=== PATIENT | female | born 2000 | race Caucasian/White ===

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

== ENCOUNTER → 2022-03-08 | Outpatient (REF) ==
[~2022-03-08] MED LIST changes: +CEPH500C PO
[2022-03-08 14:18] LABS: RSV AMPLIFICATION NEGATIVE (NEGATIVE)
== END ==
LOC: M LABSMTC 11:34
PROVIDERS: ATTEND Family Medicine
DX: Z20.818 Contact with and (suspected) exposure to other bacterial communicable diseases (principal)

== ENCOUNTER 2022-06-21 18:07 | Emergency (ER) | payer OTHER, SELFPAY ==
[~2022-06-21] VITALS: Ht 175.3 cm; Wt 66.3 kg
[2022-06-21] MEDS ORDERED: METOCLOPRAMIDE 10MG TAB PO ONE (20:35)
[2022-06-21] MEDS ORDERED: NAPROXEN 250 MG TAB PO ONE (20:35)
[2022-06-21 21:06] VITALS: BP 124/82
[2022-06-21 21:44] LABS: BASO % 0.4 % (0.0-1.0); EOS # 0.1 10^3/uL (0.0-0.5); EOS % 1.9 % (0.0-3.0); HEMATOCRIT 41.5 % (36.0-47.0); HEMOGLOBIN 13.6 g/dl (12.0-15.5); LYMPH # 2.2 10^3/uL (1.5-5.0); LYMPH % 30.7 % (24.0-44.0); MEAN CORPUSCULAR HEMOGLOBIN 29.6 pg (27.0-33.0); MEAN CORPUSCULAR HGB CONC 32.8 g/dl (32.0-36.5); MEAN CORPUSCULAR VOLUME 90.2 fl (80.0-96.0); MONO # 0.6 10^3/uL (0.0-0.8); NEUTROPHILS # 4.2 10^3/uL (1.5-8.5); NEUTROPHILS % 58.7 % (36.0-66.0); PLATELET COUNT, AUTOMATED 250 10^3/uL (150-450); WHITE BLOOD COUNT 7.2 10^3/uL (4.0-10.0)
[2022-06-21 21:54] LABS: INR 0.97; PROTHROMBIN TIME 13.1 SECONDS (12.5-14.5)
[2022-06-21 21:55] LABS: PARTIAL THROMBOPLASTIN TIME 30.3 SECONDS (24.8-34.2)
[2022-06-21 22:22] LABS: FREE THYROXINE INDEX 3.1 % (1.3-4.8); T UPTAKE 37.8 % (22.5-37.0); THYROID STIMULATING HORMONE 0.989 uIU/ML (0.48-4.17); THYROXINE (T4) 8.1 UG/DL (5.5-11.1)
[2022-06-21] MEDS ORDERED: EQL0.65S NARES (22:45)
== END 2022-06-21 22:54 | disposition home or self-care (01) ==
LOC: M ED 18:07
DX: R51.9 Headache, unspecified (principal); R04.0 Epistaxis; Z79.1 Long term (current) use of non-steroidal anti-inflammatories (NSAID); Z79.899 Other long term (current) drug therapy

== ENCOUNTER → 2022-12-06 | Outpatient (CLI) | payer OTHER ==
[~2022-12-06] MED LIST changes: +EQL0.65S NARES
[2022-12-06 17:20] LABS: BASO % 0.6 % (0.0-1.0); EOS # 0.1 10^3/uL (0.0-0.5); EOS % 2.5 % (0.0-3.0); HEMATOCRIT 37.6 % (36.0-47.0); HEMOGLOBIN 12.4 g/dl (12.0-15.5); LYMPH # 1.7 10^3/uL (1.5-5.0); LYMPH % 32.6 % (24.0-44.0); MONO # 0.5 10^3/uL (0.0-0.8); MONO % 9.6 % (2.0-8.0); NEUTROPHILS # 2.8 10^3/uL (1.5-8.5); NEUTROPHILS % 54.1 % (36.0-66.0); PLATELET COUNT, AUTOMATED 253 10^3/uL (150-450); RED BLOOD COUNT 4.13 10^6/uL (4.00-5.40); WHITE BLOOD COUNT 5.1 10^3/uL (4.0-10.0)
[2022-12-06 17:34] LABS: FREE T4 0.97 NG/DL (0.83-1.43)
[2022-12-06 17:36] LABS: ALBUMIN 4.1 G/DL (3.2-5.2); ALKALINE PHOSPHATASE 72 U/L (46-116); ALT/SGPT 17 U/L (7.0-40); AST/SGOT 11 U/L (<34); BILIRUBIN,TOTAL 0.3 MG/DL (0.3-1.2); BLOOD UREA NITROGEN 6 MG/DL (9-23); CALCIUM LEVEL 8.8 MG/DL (8.5-10.1); CARBON DIOXIDE LEVEL 29 MMOL/L (20-31); CHLORIDE LEVEL 103 MMOL/L (98-107); CREATININE FOR GFR 0.65 MG/DL (0.55-1.30); GLUCOSE, FASTING 90 MG/DL (60-100); SODIUM LEVEL 139 MMOL/L (136-145); TOTAL PROTEIN 6.9 G/DL (5.7-8.2)
== END ==
LOC: M PLALAB 15:24
PROVIDERS: ATTEND Nurse Practitioner Family
DX: R53.83 Other fatigue (principal); F32.A Depression, unspecified

== ENCOUNTER → 2023-04-18 | Outpatient (CLI) | payer OTHER ==
[2023-04-18 16:22] LABS: ALBUMIN 4.1 G/DL (3.2-5.2); ALKALINE PHOSPHATASE 49 U/L (46-116); ALT/SGPT 11 U/L (7.0-40); AST/SGOT 8 U/L (<34); BILIRUBIN,TOTAL 0.4 MG/DL (0.3-1.2); BLOOD UREA NITROGEN 9 MG/DL (9-23); CALCIUM LEVEL 9.3 MG/DL (8.5-10.1); CARBON DIOXIDE LEVEL 26 MMOL/L (20-31); CHLORIDE LEVEL 106 MMOL/L (98-107); CREATININE FOR GFR 0.71 MG/DL (0.55-1.30); GLUCOSE, FASTING 94 MG/DL (60-100); POTASSIUM SERUM 4.3 MMOL/L (3.5-5.1); SODIUM LEVEL 138 MMOL/L (136-145); TOTAL PROTEIN 7.4 G/DL (5.7-8.2)
[2023-04-18 16:33] LABS: HCG, SERUM QUALITATIVE NEGATIVE (NEGATIVE)
== END ==
LOC: M PLALAB 14:12
PROVIDERS: ATTEND Physician Assistant
DX: R42 Dizziness and giddiness (principal)

== ENCOUNTER 2023-04-27 01:14 | Emergency (ER) | payer OTHER ==
[~2023-04-27] VITALS: Ht 175.3 cm; Wt 64.7 kg
[2023-04-27] MEDS ORDERED: ENSK1TAB3 (01:21)
[2023-04-27 04:49] LABS: HEMATOCRIT 36.3 % (36.0-47.0); HEMOGLOBIN 12.4 g/dl (12.0-15.5); MEAN CORPUSCULAR HEMOGLOBIN 30.5 pg (27.0-33.0); MEAN CORPUSCULAR HGB CONC 34.2 g/dl (32.0-36.5); MEAN CORPUSCULAR VOLUME 89.2 fl (80.0-96.0); PLATELET COUNT, AUTOMATED 188 10^3/uL (150-450); RED BLOOD COUNT 4.07 10^6/uL (4.00-5.40); WHITE BLOOD COUNT 4.7 10^3/uL (4.0-10.0)
[2023-04-27 05:18] LABS: BLOOD UREA NITROGEN 9 MG/DL (9-23); CALCIUM LEVEL 8.3 MG/DL (8.5-10.1); CARBON DIOXIDE LEVEL 24 MMOL/L (20-31); CHLORIDE LEVEL 109 MMOL/L (98-107); CREATININE FOR GFR 0.69 MG/DL (0.55-1.30); GLUCOSE, FASTING 85 MG/DL (60-100); POTASSIUM SERUM 3.9 MMOL/L (3.5-5.1); SODIUM LEVEL 139 MMOL/L (136-145)
[2023-04-27] MEDS ORDERED: ISOVUE-370 76% 100ML VIAL As Ordered ONE (05:27)
[2023-04-27 05:36] LABS: HCG, SERUM QUALITATIVE NEGATIVE (NEGATIVE)
[2023-04-27 07:54] VITALS: BP 98/52; TEMP 98.3; O2SAT 99
== END 2023-04-27 07:57 | disposition home or self-care (01) ==
LOC: M ED 01:14
DX: R55 Syncope and collapse (principal); K21.9 Gastro-esophageal reflux disease without esophagitis; F17.200 Nicotine dependence, unspecified, uncomplicated; F10.10 Alcohol abuse, uncomplicated; Z79.899 Other long term (current) drug therapy
CPT/HCPCS: 36415; 71275; 80048; 84703; 85027; 93005; 99284; Q9967

== ENCOUNTER → 2024-07-22 | Outpatient (CLI) | payer OTHER ==
[~2024-07-22] MED LIST changes: +ENSK1TAB3
[2024-07-22 17:49] LABS: HEMATOCRIT 37.5 % (36.0-47.0); HEMOGLOBIN 12.2 g/dl (12.0-15.5); MEAN CORPUSCULAR HEMOGLOBIN 30.1 pg (27.0-33.0); MEAN CORPUSCULAR HGB CONC 32.5 g/dl (32.0-36.5); MEAN CORPUSCULAR VOLUME 92.6 fl (80.0-96.0); PLATELET COUNT, AUTOMATED 235 10^3/uL (150-450); RED BLOOD COUNT 4.05 10^6/uL (4.00-5.40); WHITE BLOOD COUNT 8.4 10^3/uL (4.0-10.0)
[2024-07-22 18:41] LABS: HIV 1&2 SCREEN NEGATIVE (NEGATIVE)
[2024-07-22 18:49] LABS: HEPATITIS C VIRUS ABY INDEX < 0.02 INDEX (<0.8)
[2024-07-22 20:01] LABS: Trichomonas vaginalis (AMP) NOT DETECTED (NEGATIVE)
[2024-07-22 20:25] LABS: GC DNA AMPLIFICATION NEGATIVE (NEGATIVE)
== END ==
LOC: M PLALAB 15:13
PROVIDERS: ATTEND Advanced Practice Midwife
DX: Z34.02 Encounter for supervision of normal first pregnancy, second trimester (principal)

== ENCOUNTER → 2024-09-30 | Outpatient (CLI) | payer OTHER ==
[2024-09-30 14:02] LABS: PLATELET COUNT, AUTOMATED 223 10^3/uL (150-450)
[2024-09-30 14:25] LABS: Trichomonas vaginalis (AMP) NOT DETECTED (NEGATIVE)
[2024-09-30 14:34] LABS: GLUCOSE CHALLENGE TEST 1 HOUR 59 MG/DL (LESS THAN 140)
[2024-09-30 14:47] LABS: HEPATITIS C VIRUS ABY INDEX < 0.02 INDEX (<0.8); HIV 1&2 SCREEN NEGATIVE (NEGATIVE)
[2024-09-30 14:49] LABS: GC DNA AMPLIFICATION NEGATIVE (NEGATIVE)
== END ==
LOC: M PLARAD 08:21
PROVIDERS: ATTEND Advanced Practice Midwife
DX: Z34.02 Encounter for supervision of normal first pregnancy, second trimester (principal); Z3A.00 Weeks of gestation of pregnancy not specified

== ENCOUNTER → 2024-09-30 | Outpatient (CLI) | payer OTHER | LOC: M WHC 06:59 | PROVIDERS: ATTEND Advanced Practice Midwife | DX: Z34.03 Encounter for supervision of normal first pregnancy, third trimester (principal); Z3A.30 30 weeks gestation of pregnancy ==

== ENCOUNTER → 2024-11-14 | Outpatient (REF) | payer OTHER | LOC: M SFHCWAGY 12:39 | PROVIDERS: ATTEND Advanced Practice Midwife | DX: Z34.03 Encounter for supervision of normal first pregnancy, third trimester (principal) ==

== ENCOUNTER 2024-12-07 21:35 | Inpatient (IN) | payer OTHER ==
[~2024-12-07] VITALS: Ht 175.3 cm; Wt 80.0 kg
[2024-12-07] MEDS ORDERED: TRANEXAMIC ACID INJection 1,000 MG in NS 100 ML IV PRN (22:10)
[2024-12-07] MEDS ORDERED: miSOPROStol 50 MCG 1/2 TABLET PO PRN (22:10)
[2024-12-07] MEDS ORDERED: OXYTOCIN INJ 10UNITS/ML 1ML VIAL IV PRN (22:10)
[2024-12-07] MEDS ORDERED: LR 1,000 ML IV SCH (22:10)
[2024-12-07] MEDS ORDERED: METHYLERGONOVINE MALEATE 0.2 MG/ML 1 ML VIAL IM PRN (22:10)
[2024-12-07] MEDS ORDERED: CARBOPROST TROMETHAMINE 250 MCG/ML AMP IM PRN (22:10)
[2024-12-07] MEDS ORDERED: OXYTOCIN INJ 10UNITS/ML 1ML VIAL IM PRN (22:10)
[2024-12-07] MEDS ORDERED: OXYTOCIN DRIP 30 UNITS in IV 1 EA IV PRN (22:10)
[2024-12-07 22:33] LABS: BASO # 0.0 10^3/uL (0.0-0.2); BASO % 0.3 % (0.0-1.0); EOS # 0.1 10^3/uL (0.0-0.5); EOS % 0.5 % (0.0-3.0); LYMPH # 1.7 10^3/uL (1.5-5.0); LYMPH % 15.2 % (24.0-44.0); MONO # 0.7 10^3/uL (0.0-0.8); MONO % 6.3 % (2.0-8.0); NEUTROPHILS # 8.8 10^3/uL (1.5-8.5); NEUTROPHILS % 77.2 % (36.0-66.0); PLATELET COUNT, AUTOMATED 289 10^3/uL (150-450)
[2024-12-07 22:55] LABS: LDH LACTATE DEHYDROGENASE 183 U/L (120-246)
[2024-12-07 22:56] LABS: ALT/SGPT 12 U/L (7.0-40); AST/SGOT 17 U/L (<34); CREATININE FOR GFR 0.64 MG/DL (0.55-1.30); GLOMERULAR FILTRATION RATE > 90.0 (>60)
[2024-12-07 23:36] LABS: HEPATITIS C VIRUS ABY INDEX 0.02 INDEX (<0.8)
[2024-12-08] VITALS (15 sets, daily range): BP systolic 112–142; BP diastolic 54–82; O2SAT 97–98
[2024-12-08] MEDS: BUTORPHANOL 2 MG/ML 1 ML VIAL IV ONE (02:27)
[2024-12-08 09:15] LABS: HIV 1&2 SCREEN NEGATIVE (NEGATIVE)
[2024-12-08] MEDS: LACTATED RINGER'S 1000 ML IV STA (11:48)
[2024-12-08] MEDS ORDERED: LR 500 ML IV PRN (12:20)
[2024-12-08] MEDS ORDERED: ONDANSETRON 4MG 2ML VIAL IV PRN (12:20)
[2024-12-08] MEDS ORDERED: FENTANYL/ROPIVACAINE/NACL BAG 100 ML EPIDURAL SCH (12:20)
[2024-12-08] MEDS ORDERED: NALOXONE INJ 0.4 MG/1 ML VIAL IV PRN (12:20)
[2024-12-08] MEDS ORDERED: diphenhydrAMINE 50 MG/ML VIAL IV PRN (12:20)
[2024-12-08] MEDS ORDERED: EPIDURAL/PCA KEYS XX PRN (12:20)
[2024-12-08] MEDS ORDERED: FENTANYL 2 MCG/ML ROPIVACAINE 0.2% IN 0.9% NACL 100 ML IVBAG As Ordered ONE (12:21)
[2024-12-08] MEDS: OXYTOCIN DRIP 30 UNITS in IV 1 EA IV PRN (13:37)
[2024-12-08] MEDS: LIDOCAINE 1% MDV 20 ML VIAL INFIL PRN (13:41)
[2024-12-08] MEDS ORDERED: MOM 30 ML SUSPENSION UDC PO PRN (14:10)
[2024-12-08] MEDS ORDERED: DOCUSATE SODIUM 100 MG CAPSULE PO PRN (14:10)
[2024-12-08] MEDS ORDERED: DIBUCAINE 1% OINTMENT 30 GM TOP PRN (14:10)
[2024-12-08] MEDS ORDERED: ANUSOL HC CREAM 30 GM TOP PRN (14:10)
[2024-12-08] MEDS ORDERED: ACETAMINOPHEN 325 MG TAB PO PRN (14:10)
[2024-12-08] MEDS: KETOROLAC 30 MG/ML 1 ML VIAL IV ONE (14:19)
[2024-12-08] MEDS: IBUPROFEN 800 MG TAB PO PRN (20:53)
[2024-12-09] MEDS: RHOGAM 300MCG (1500IU) INJ IM SCH (04:35)
[2024-12-09 05:10] VITALS: BP 101/52; O2SAT 97
[2024-12-09] MEDS: PRENATAL VITAMINS CHEWABLE TABLET PO SCH (08:24)
[2024-12-09] MEDS: IBUPROFEN 600 MG TAB PO PRN (08:30)
[2024-12-09 18:00] VITALS: BP 100/56; O2SAT 99
[2024-12-09] MEDS: ACETAMINOPHEN 500 MG TAB PO PRN (23:42)
[2024-12-10 06:00] VITALS: BP 99/52; O2SAT 100
[2024-12-10] MEDS: MEASLES,MUMPS,RUBELLA VACCINE INJ (MMR-II) SC.IMMUN ONE (10:09)
== END 2024-12-10 13:05 | disposition home or self-care (01) | DRG 807 ==
LOC: M LDO 21:35 → M LDI 21:55 → M OBS 12-08 16:26
PROVIDERS: ADMIT Obstetrics & Gynecology; ATTEND Obstetrics & Gynecology
PROC: 10E0XZZ Delivery of Products of Conception, External Approach (ICD-10-PCS; principal; 2024-12-08)
DX: O80 Encounter for full-term uncomplicated delivery (principal); Z37.0 Single live birth; Z3A.39 39 weeks gestation of pregnancy

== ENCOUNTER 2024-12-19 13:34 | Emergency (ER) | payer OTHER ==
[~2024-12-19] VITALS: Ht 175.3 cm; Wt 71.9 kg
[2024-12-19] MEDS ORDERED: ACET-683 PO (13:46)
[2024-12-19] MEDS ORDERED: IBUP200T46 PO (13:46)
[2024-12-19] MEDS: ACETAMINOPHEN 325 MG TAB PO ONE (14:31)
[2024-12-19] MEDS: NS (Normal Saline) 0.9% 1,000 ML IV ONE (14:31)
[2024-12-19 14:40] LABS: BASO # 0.0 10^3/uL (0.0-0.2); BASO % 0.1 % (0.0-1.0); EOS # 0.0 10^3/uL (0.0-0.5); EOS % 0.1 % (0.0-3.0); LYMPH # 0.5 10^3/uL (1.5-5.0); LYMPH % 7.2 % (24.0-44.0); MONO # 0.2 10^3/uL (0.0-0.8); MONO % 2.7 % (2.0-8.0); NEUTROPHILS # 6.2 10^3/uL (1.5-8.5); NEUTROPHILS % 88.5 % (36.0-66.0); PLATELET COUNT, AUTOMATED 208 10^3/uL (150-450)
[2024-12-19] MEDS: ceFAZolin SODIUM 2 GM in DEXTROSE 5% (D5W) ADV/MINI-BAG 50 ML IV ONE (15:10)
[2024-12-19 15:12] LABS: ALT/SGPT 80 U/L (7.0-40); AST/SGOT 45 U/L (<34); CALCIUM LEVEL 8.2 MG/DL (8.5-10.1); CARBON DIOXIDE LEVEL 21 MMOL/L (20-31); CHLORIDE LEVEL 99 MMOL/L (98-107); CREATININE FOR GFR 0.73 MG/DL (0.55-1.30); GLOMERULAR FILTRATION RATE > 90.0 (>60); POTASSIUM SERUM 3.5 MMOL/L (3.5-5.1); SODIUM LEVEL 132 MMOL/L (136-145)
[2024-12-19 16:15] VITALS: BP 115/58; TEMP 98.6; O2SAT 97
[2024-12-19] MEDS ORDERED: CEPH500C PO (16:21)
[2024-12-19 16:48] LABS: KETONE, URINE AUTO RFX 2+ mg/dL (NEGATIVE); LEUKOCYTE ESTERASE UR AUTO RFX NEGATIVE (NEGATIVE); MUCUS, URINE RFX SMALL (NEGATIVE); NITRITE, URINE AUTO RFX NEGATIVE (NEGATIVE); RBC, URINE AUTO RFX 0 /HPF (0-3); SQUAM EPITHELIAL CELL UR AURFX 0 /HPF (0-6); WBC, URINE AUTO RFX 3 /HPF (0-3)
== END 2024-12-19 16:34 | disposition home or self-care (01) ==
LOC: M ED 13:34
DX: N61.0 Mastitis without abscess (principal); Z79.1 Long term (current) use of non-steroidal anti-inflammatories (NSAID); Z79.2 Long term (current) use of antibiotics
CPT/HCPCS: 80053; 81001; 83605; 85025; 87040; 87486; 87581; 87633; 87798; 96361; 96365; 99284; J0688